=== PATIENT | female | born 1945 | race American Indian/Alaskan Native ===

== ENCOUNTER 2021-05-29 09:25 | Inpatient (IN) | payer SELFPAY ==
[2021-05-29] MEDS ORDERED: SODIUM CHLORIDE 0.9% 1000 ML 1,000 ML IV ONE (09:50)
--- NOTE | 2021-05-29 09:53 | Emergency Department Report ---
- General Chief complaint: Weakness Stated complaint: SOB,WEAK Time Seen by Provider: 05/29/21 09:42 Source: patient Mode of arrival: Wheelchair Limitations: Physical Limitation - History of Present Illness Initial comments: Patient presents with a 3-month history of generalized weakness. She states that she has gotten more and more weak and more more febrile over the last sever al months. She does not want to eat or drink. She has no appetite. She does not have any vomiting. She states that she is also been having trouble breathing. Patient states that she has been hiding this from her family. She lives with her son who is a long-moving van driver. She states that when he is around, she stays in her room and keeps to herself. When he is not there, she has no one to worry about. She decided this morning that she needed help. She had to crawl up the stairs because she was so weak. She told her son to bring her here and he did. Patient has had no vomiting. There is no diarrhea. She denies melena. She has no chest pain. Shortness of breath is constant. It is not positional. It is not associate with any kind of cough or fever. - Related Data Allergies Allergy/AdvReac Type Severity Reaction Status Date / Time No Known Allergies Allergy Unverified 05/29/21 09:29 ED Review of Systems ROS: Stated complaint: SOB,WEAK Other details as noted in HPI Comment: All other systems reviewed and negative Constitutional: denies: fever Eyes: denies: vision change ENT: denies: throat pain Respiratory: denies: cough Cardiovascular: denies: chest pain Endocrine: denies: unexplained weight loss Gastrointestinal: denies: abdominal pain Genitourinary: denies: dysuria Musculoskeletal: denies: back pain Skin: denies: rash Neurological: denies: headache Hematological/Lymphatic: denies: easy bruising ED Past Medical Hx - Past Medical History Previous Medical History?: No - Surgical History Additional Surgical History: Hysterectomy - Family History Family history: no significant ED Physical Exam - General Limitations: Physical Limitation (Frail and debilitated), Other (Pulse ox noted and normal) General appearance: alert, in no apparent distress, cachectic - Head Head exam: Present: atraumatic, normocephalic - Eye Eye exam: Present: normal appearance, EOMI. Absent: scleral icterus - ENT ENT exam: Present: mucous membranes dry, normal external ear exam - Neck Neck exam: Present: normal inspection. Absent: meningismus - Respiratory Respiratory exam: Present: normal lung sounds bilaterally. Absent: respiratory distress - Cardiovascular Cardiovascular Exam: Present: normal rhythm, tachycardia - GI/Abdominal GI/Abdominal exam: Present: soft. Absent: distended, tenderness - Extremities Exam Extremities exam: Present: normal capillary refill - Back Exam Back exam: Absent: CVA tenderness (R), CVA tenderness (L) - Neurological Exam Neurological exam: Present: alert, oriented X3, CN II-XII intact, reflexes no rmal - Psychiatric Psychiatric exam: Present: normal mood, flat affect - Skin Skin exam: Present: warm, dry ED Course Vital Signs 05/29/21 05/29/21 05/29/21 09:33 09:56 10:00 Temperature 98.2 F Pulse Rate 129 H 117 H 115 H Respiratory 20 23 25 H Rate Blood Pressure 149/80 Blood Pressure 143/89 [Right] O2 Sat by Pulse 97 96 95 Oximetry 05/29/21 05/29/21 05/29/21 10:08 10:22 10:31 Temperature Pulse Rate 120 H 114 H Respiratory 26 H 27 H Rate Blood Pressure 156/83 137/81 Blood Pressure [Right] O2 Sat by Pulse 100 94 96 Oximetry 05/29/21 05/29/21 05/29/21 10:45 11:01 11:15 Temperature Pulse Rate 111 H 104 H 101 H Respiratory 23 29 H 16 Rate Blood Pressure 132/90 132/84 152/75 Blood Pressure [Right] O2 Sat by Pulse 96 95 94 Oximetry 05/29/21 05/29/21 05/29/21 11:31 11:45 12:01 Temperature Pulse Rate 97 H 96 H 100 H Respiratory 19 23 21 Rate Blood Pressure 119/98 176/85 182/90 Blood Pressure [Right] O2 Sat by Pulse 98 99 100 Oximetry 05/29/21 05/29/21 05/29/21 12:15 12:31 12:45 Temperature Pulse Rate 100 H 106 H 104 H Respiratory 24 23 28 H Rate Blood Pressure 169/87 178/88 178/79 Blood Pressure [Right] O2 Sat by Pulse 100 100 100 Oximetry 05/29/21 05/29/21 05/29/21 13:01 13:15 13:31 Temperature Pulse Rate 103 H 114 H 114 H Respiratory 18 19 20 Rate Blood Pressure 163/78 160/84 170/79 Blood Pressure [Right] O2 Sat by Pulse 100 100 100 Oximetry 05/29/21 05/29/21 05/29/21 13:49 14:01 14:15 Temperature Pulse Rate 110 H 104 H 106 H Respiratory 26 H 21 22 Rate Blood Pressure 170/79 144/81 163/76 Blood Pressure [Right] O2 Sat by Pulse 99 98 98 Oximetry - Reevaluation(s) Reevaluation #1: 05/29/21 09:52 IV and labs ordered. Old records noted. Reevaluation #2: 05/29/21 14:49 Labs have been noted. Patient will require admission. CT has been added on. ED Medical Decision Making - Lab Data Result diagrams: 05/29/21 09:56 05/29/21 09:56 Rhythm strip: Sinus tachycardia without ectopy. Monitor observe 10 seconds. - EKG Data -: EKG Interpreted by Ar - EKG Data 05/29/21 10:32 1024-EKG shows sinus tachycardia 112. QRS is normal at 93. QT corrected is normal at 125. Patient has no ST elevation to suggest STEMI. There appears to be some ST depression in lead II. There is artifact noted. Patient has no old EKG for comparison. - Medical Decision Making Patient presents secondary to anorexia and generalized malaise and weakness. She was found to be dehydrated with hypernatremia and hypokalemia. She has a pleural effusion. There is evidence of pancreatitis. Etiology for her myriad symptoms could all be related. She does not seem to have any distention or tympany to suggest bowel obstruction. There was no right upper quadrant tenderness suggestive of biliary disease. She does not have a pulsatile mass that would suggest AAA. Patient was admitted to the hospitalist with ongoing management planned. Critical Care Time: No Critical care attestation.: If time is entered above; I have spent that time in minutes in the direct care of this critically ill patient, excluding procedure time. ED Disposition Clinical Impression: Generalized weakness, Anorexia, Hypernatremia, Hypokalemia, Recurrent left pleural effusion Pancreatitis Qualifiers: Chronicity: acute Pancreatitis type: unspecified pancreatitis type Acute pancreatitis complication: unspecified Qualified Code(s): K85.90 - Acute pancreatitis without necrosis or infection, unspecified Disposition: 09 ADMITTED INPATIENT Is pt being admited?: Yes Condition: Stable Referrals: PRIMARY CARE,MD [Primary Care Provider] - 3-5 Days
--- NOTE | 2021-05-29 10:42 | XRay Report ---
CHEST 2 VIEWS INDICATION / CLINICAL INFORMATION: Shortness of breath. COMPARISON: None available. FINDINGS: SUPPORT DEVICES: None. HEART / MEDIASTINUM: No significant abnormality. LUNGS / PLEURA: There is a spiculated left perihilar mass with associated volume loss in the left upp er lung. ADDITIONAL FINDINGS: No significant additional findings. IMPRESSION: 1. Spiculated left perihilar mass and volume loss in left upper lung highly suggestive of bronchogeni c malignancy. Further evaluation with CT of the chest with IV contrast is recommended. Signer Name: Magan Orellana MD Signed: 05/29/2021 10:37 AM Workstation Name: [id number]
[2021-05-29 11:28] LABS: Basophils % (Auto) 0.2 % (0.0-1.8); Eosinophils % (Auto) 0.1 % (0.0-4.3); Hemoglobin 11.5 gm/dl (10.1-14.3); Lymphocytes # (Auto) 0.8 K/mm3 (1.2-5.4); Lymphocytes % (Auto) 7.5 % (13.4-35.0); Mean Corpuscular HGB Conc 31 % (30-34); Mean Corpuscular Volume 93 fl (79-97); Monocytes # (Auto) 0.3 K/mm3 (0.0-0.8); Monocytes % (Auto) 2.9 % (0.0-7.3); Platelet Count 187 K/mm3 (140-440); Red Cell Distribution Width 15.3 % (13.2-15.2)
[2021-05-29 11:46] LABS: BUN/Creatinine Ratio 46; Blood Urea Nitrogen 37 mg/dL (7-17); Calcium 9.4 mg/dL (8.4-10.2); Hemolysis Index 3
[2021-05-29 11:48] LABS: Alanine Aminotransferase 17 units/L (7-56); Albumin 3.3 g/dL (3.9-5)
[2021-05-29 11:52] LABS: Bilirubin,Direct < 0.2 mg/dL (0-0.2)
[2021-05-29] MEDS ORDERED: POTASSIUM CHLORIDE ER 20 MEQ TAB PO ONE (12:12)
[2021-05-29] MEDS ORDERED: LACTATED RINGERS 1,000 ML IV ONE (12:12)
[2021-05-29] MEDS ORDERED: SODIUM CHLORIDE 0.9% 500 ML 500 ML ONE (14:19)
[2021-05-29] MEDS ORDERED: ACETAMINOPHEN 325 MG TAB PO PRN (14:45)
[2021-05-29] MEDS ORDERED: ONDANSETRON 4 MG/2 ML INJ IV PRN (14:45)
--- NOTE | 2021-05-29 14:45 | History and Physical Report ---
History of Present Illness Chief complaint: I feel weak, I cannot keep anything down and I keep losing weight History of present illness: 75 YO Female with No PMH presents to ED for evaluation. Patient states "I feel weak and I cannot keep any down". Patient states that she had experienced increased weakness, nausea, loss of appetite, diminished oral intake over the past 3 months. Patient knowledges 55 pound weight loss over the past 2 months. Patient reports that she is no longer able to ambulate due to progressive weakness. Patient has increased bedbound status. Patient has a palliative performance score 30% and requires 5/6 assistance with activities of daily living. Patient transported to [facility] via private vehicle for further care and evaluation of the aforementioned symptoms. The patient was seen and evaluated in the emergency department. All lab and imaging studies reviewed. Patient found to have pancreatic head mass consistent with pancreatic cancer complicated by acute pancreatitis, and malnutrition, as well as chronic pain. Patient denies fever, chills, chest pain, palpitation, productive cough, skin rash, recent contact, known exposure to COVID-19. No prior admission for review. No medication listed at time of admission for reconciliation. Advanced care planning conducted in ED. [place] Score:1 on admission Past History Past Medical History: No medical history, other (Reviewed) Past Surgical History: No surgical history, Other (Reviewed) Social history: single, lives with family. denies: smoking, alcohol abuse, prescription drug abuse Family history: no significant family history, other (Reviewed) Medications and Allergies Allergies Allergy/AdvReac Type Severity Reaction Status Date / Time No Known Allergies Allergy Unverified 05/29/21 09:29 Active Meds: Active Medications Potassium Chloride (Kcl 10meq/100ml) 10 meq in 100 mls @ 100 mls/hr IV Q1H SEBASTIAN Stop: 05/29/21 15:59 Review of Systems Constitutional: weight loss, weakness, no weight gain, no fever, no chills Ears, nose, mouth and throat: no ear pain, no ear discharge, no decreased hearing, no nose pain, no nasal discharge Breasts: no change in shape, no mass Cardiovascular: no chest pain, no orthopnea, no palpitations, no edema Respiratory: no cough, no cough with sputum, no hemoptysis, no dyspnea on exertion Gastrointestinal: abdominal pain, nausea, no vomiting, no diarrhea, no constipation Genitourinary Female: no pelvic pain, no flank pain, no dysuria, no urinary frequency, no urgency Rectal: no pain, no incontinence, no bleeding Musculoskeletal: no neck stiffness, no shooting arm pain, no low back pain, no shooting leg pain Integumentary: no rash, no redness, no wounds, no boils Neurological: no head injury, no transient paralysis, no weakness, no parathesias, no seizures, no tremors Psychiatric: no anxiety, no memory loss, no sleep disturbances, no change in appetite, no change in libido Endocrine: no cold intolerance, no heat intolerance, no excessive thirst, no polydipsia Hematologic/Lymphatic: no easy bruising, no easy bleeding Allergic/Immunologic: no urticaria, no wheezing Exam - Constitutional Vitals: Temp Pulse Resp BP Pulse Ox 98.2 F 106 H 22 163/76 98 05/29/21 09:33 05/29/21 14:15 05/29/21 14:15 05/29/21 14:15 05/29/21 14:15 General appearance: Present: mild distress, cachectic - EENT Eyes: Present: PERRL ENT: hearing intact, clear oral mucosa - Neck Neck: Present: supple, normal ROM - Respiratory Respiratory effort: normal Respiratory: bilateral: diminished - Cardiovascular Heart Sounds: Present: S1 & S2. Absent: rub, click - Extremities Extremities: pulses symmetrical, No edema Peripheral Pulses: within normal limits - Abdominal General gastrointestinal: Present: soft, tender, non-distended, normal bowel sounds Female genitourinary: Present: normal - Integumentary Integumentary: Present: clear, warm, dry - Musculoskeletal Musculoskeletal: generalized weakness - Psychiatric Psychiatric: appropriate mood/affect, intact judgment & insight - Neurologic Neurologic: CNII-XII intact, moves all extremities HEART Score - HEART Score Troponin: Troponin T < 0.010 ng/mL (0.00-0.029) 05/29/21 09:56 Results - Labs CBC & Chem 7: 05/29/21 09:56 05/29/21 09:56 Labs: Abnormal lab results 05/29/21 05/29/21 05/29/21 Range/Units 09:56 09:56 09:56 RDW 15.3 H (13.2-15.2) % Lymph % (Auto) 7.5 L (13.4-35.0) % Lymph # (Auto) 0.8 L (1.2-5.4) K/mm3 Seg Neutrophils % 89.3 H (40.0-70.0) % Seg Neutrophils # 9.0 H (1.8-7.7) K/mm3 Sodium 151 H (137-145) mmol/L Potassium 2.7 L* (3.6-5.0) mmol/L Chloride 97.5 L (98-107) mmol/L Carbon Dioxide 33 H (22-30) mmol/L BUN 37 H (7-17) mg/dL Magnesium 2.40 H (1.7-2.3) mg/dL AST 41 H (5-40) units/L Total Protein 6.1 L (6.3-8.2) g/dL Albumin 3.3 L (3.9-5) g/dL Lipase 989 H (13-60) units/L Assessment and Plan - Patient Problems (1) Pancreatic cancer Current Visit: Yes Status: Acute Qualifiers: Pancreatic malignancy location: head of pancreas Qualified Code(s): C25.0 - Malignant neoplasm of head of pancreas Plan to address problem: CT scan abdomen pelvis, pain control, supportive care, antiemetic therapy. Patient diagnosis and prognosis discussed. No curative treatment options available. Patient discharged home with home hospice care. Patient elects to have home hospice care. Home hospice care team notified. (2) Malnutrition Current Visit: Yes Status: Acute Qualifiers: Malnutrition type: protein-calorie malnutrition Protein-calorie malnutrition severity: moderate Qualified Code(s): E44.0 - Moderate protein- calorie malnutrition Plan to address problem: Dietary supplementation, increase protein intake. (3) Abdominal pain Current Visit: Yes Status: Acute Qualifiers: Abdominal location: right upper quadrant Qualified Code(s): R10.11 - Right upper quadrant pain Plan to address problem: CT scan abdomen pelvis, pain control, supportive care. (4) Debility Current Visit: Yes Status: Acute Plan to address problem: Supportive care, fall precautions, (5) Vascular dementia Current Visit: Yes Status: Acute Qualifiers: Dementia behavioral disturbance: without behavioral disturbance Qualified Code(s): F01.50 - Vascular dementia without behavioral disturbance Plan to address problem: Verbal prompting, verbal redirection, benzodiazepine therapy as clinically indicated. (6) Cerebral atherosclerosis Current Visit: Yes Status: Acute Plan to address problem: Risk factor reduction therapy, antiplatelet therapy as clinically indicated. (7) Acute pancreatitis Current Visit: Yes Status: Acute Qualifiers: Pancreatitis type: other Plan to address problem: Secondary to pancreatic cancer, supportive care, pain control, oral intake as tolerated. (8) DVT prophylaxis Current Visit: Yes Status: Acute Plan to address problem: SCD to bilateral lower extremities while in bed (9) Advance care planning Current Visit: Yes Status: Acute Plan to address problem: Disease education done, care plan discussed, diagnoses discussed, prognosis di scussed. Patient acknowledges understanding and agreement with care plan. Patient informed of diagnosis of pancreatic cancer and subsequent prognosis. Patient elects to be discharged home with home hospice care. +30 minutes.
--- NOTE | 2021-05-29 14:45 | Electrocardiograph Report ---
[facility] Test Date: 2021-05-29 Test Time: 10:24:01 Pat Name: MADI GOOD Department: Room: Gender: F Document Imaging Specialist: RODERICK : 1945 Requested By: CANDICE MORRISSEY Order Number: [id number] Reading MD: Magdalena Storm Measurements Intervals [place] Rate: 112 P: 74 SC: 127 QRS: 47 QRSD: 93 T: 41 QT: 311 QTc: 425 Interpretive Statements Sinus tachycardia Probable left atrial enlargement Possible anteroseptal infarct, old No previous ECG available for comparison Electronically Signed On 05-29-2021 14:45:12 EST by Magdalena Storm
[2021-05-29] MEDS: POTASSIUM CHLORIDE 10 MEQ 10 MEQ/100 ML BAG IV SCH ×2 (14:46→16:04)
--- NOTE | 2021-05-29 14:47 | Cat Scan Report ---
CT ABDOMEN AND PELVIS WITH CONTRAST HISTORY: pancreatitis. Acute upper abdominal pain COMPARISON: None. TECHNIQUE: CT images of the abdomen and pelvis were obtained following administration of intravenous contrast. All CT scans at this location are performed using CT dose reduction for ALARA by means of automated exposure control. CONTRAST: 100 ml of intravenous contrast administered. FINDINGS: Lungs/bones: Moderate-sized pleural effusion on the left. Mild left basilar compressive atelectasis. Degenerative changes in the spine and the pelvis with no acute osseous abnormality identified. Abdomen/pelvis: There is a pancreatic head mass which is hypoattenuating and measures approximately 2.6 x 2.3 cm on image 56 of series #2. There is upstream pancreatic ductal dilatation and there is al so mild pancreatitis with stranding about the pancreas. A trace amount of ascites is also present as well as several enlarged regional lymph nodes. The celiac axis maintains normal fat plane 365 degrees around the vessel. A simple hepatic cyst is seen in the anterior segment; however, there is an adjac ent more subtle low-attenuation lesion measuring 2 cm on image 18 of series 2 for example. A 5 mm hyp odensity is also seen in the posterior segment on image 39 of the same series. Finally, there is thro mbus in the superior mesenteric vein as seen on image 45 of series 2. There is mild wall thickening involving the duodenal C-loop, likely reactive. The biliary tree is unr emarkable. There are simple bilateral renal cysts, largest arising from the mid to lower pole on the left. Moder ate atherosclerotic disease is present in the abdominal aorta and branch vessels. The gallbladder and spleen appear unremarkable. Urinary bladder is unremarkable. Uterus is surgically absent. There is small volume pelvic free fluid pooling in the pelvis. Moderate colonic diverticulosis is present with no acute inflammatory change identified. There is some abnormal wall thickening involving the splenic flexure of the colon which c ould theoretically be reactive given adjacent pancreatitis. There is also a small loculated fluid col lection measuring 3 cm in the left upper quadrant on image 55 which may reflect early pseudocyst form ation. No bowel obstruction or perforation. IMPRESSION: 1. Pancreatic head mass as outlined above worrisome for adenocarcinoma, with vague hypodensities in t he liver worrisome for metastatic disease. Further, there is regional adenopathy which could be patho logic. Resultant pancreatitis is seen with pancreatic ductal dilatation and inflammatory change about the entire pancreas, as well as small early pseudocyst formation near the splenic flexure of the col on, likely reactive inflammatory change involving the colon itself, and thrombus in the superior mese nteric vein. 2. Moderate-sized left-sided pleural effusion. Signer Name: Heriberto Arceo MD Signed: 05/29/2021 2:42 PM Workstation Name: [id number]
[2021-05-29] MEDS ORDERED: HYDROmorphone 1 MG/1 ML INJ IV PRN (14:50)
[2021-05-29] MEDS ORDERED: ALBUTEROL 2.5 MG/3 ML NEBU IH PRN (14:50)
[2021-05-29] MEDS ORDERED: MORPHINE 2 MG/1 ML INJ IV PRN (14:50)
[2021-05-29] MEDS ORDERED: SODIUM CHLORIDE 0.9% 1000 ML 1,000 ML IV SCH (15:00)
[2021-05-29 15:42] VITALS: BP 165/92
--- NOTE | 2021-05-29 16:56 | Discharge Summary ---
Providers - Providers Date of Admission: 05/29/21 14:45 Attending physician: LOWELL DOBSON 05/29/21 09:50 Consult to Case Management [CONS] Routine Services Needed at Discharge: Other Notified:: placement Primary care physician: [employer] Hospitalization Condition: Poor Pertinent studies: CT scan abdomen pelvis: Pancreatic head mass consistent with pancreatic cancer. Hospital course: 75 YO Female with No PMH presents to ED for evaluation. Patient states "I feel weak and I cannot keep any down". Patient states that she had experienced increased weakness, nausea, loss of appetite, diminished oral intake over the past 3 months. Patient knowledges 55 pound weight loss over the past 2 months. Patient reports that she is no longer able to ambulate due to progressive weakness. Patient has increased bedbound status. Patient has a palliative performance score 30% and requires 5/6 assistance with activities of daily livin g. Patient transported to [facility] via private vehicle for further care and evaluation of the aforementioned symptoms. The patient was seen and evaluated in the emergency department. All lab and imaging studies reviewed. Patient found to have pancreatic head mass consistent with pancreatic cancer complicated by acute pancreatitis, and malnutrition, as well as chronic pain. Patient denies fever, chills, chest pain, palpitation, productive cough, skin rash, recent contact, known exposure to COVID-19. Advanced care planning conducted in ED. patient medically optimized and subsequently discharged home with home hospice care. Disposition: 50 HOSPICE/HOME Final Discharge Diagnosis (Prints w/discharge instructions): Pancreatic cancer Time spent for discharge: 35 minutes - Discharge Diagnoses (1) Pancreatic cancer Status: Acute (2) Acute pancreatitis Status: Acute Qualifiers: Pancreatitis type: other (3) Debility Status: Acute Core Measure Documentation - Palliative Care Palliative Care/ Comfort Measures: Hospice Care Exam - Constitutional Vitals: Temp Pulse Resp BP Pulse Ox 98.2 F 110 H 22 165/92 100 05/29/21 09:33 05/29/21 15:31 05/29/21 15:31 05/29/21 15:31 05/29/21 15:31 General appearance: Present: mild distress, cachectic - EENT Eyes: Present: PERRL ENT: hearing intact, clear oral mucosa - Neck Neck: Present: supple, normal ROM - Respiratory Respiratory effort: normal Respiratory: bilateral: CTA - Cardiovascular Heart Sounds: Present: S1 & S2. Absent: rub, click - Extremities Extremities: pulses symmetrical, No edema Peripheral Pulses: within normal limits - Abdominal General gastrointestinal: Present: soft, non-tender, non-distended, normal bowel sounds Female genitourinary: Present: normal - Integumentary Integumentary: Present: clear, warm, dry - Musculoskeletal Musculoskeletal: gait normal, strength equal bilaterally - Psychiatric Psychiatric: appropriate mood/affect, intact judgment & insight - Neurologic Neurologic: CNII-XII intact, moves all extremities Plan Activity: advance as tolerated Diet: advance as tolerated Special Instructions: home hospice Follow up with: PRIMARY CARE, [Primary Care Provider] - 3-5 Days
[2021-05-29] MEDS ORDERED: POTASSIUM CHLORIDE 10 MEQ 10 MEQ/100 ML BAG IV SCH (17:00)
== END 2021-05-29 18:25 | disposition hospice, home (50) | DRG 439 ==
LOC: ED 09:25 → 3A 14:45
PROVIDERS: ADMIT Internal Medicine; ATTEND Internal Medicine
DX: K85.90 Acute pancreatitis without necrosis or infection, unspecified (principal); E87.0 Hyperosmolality and hypernatremia; E44.0 Moderate protein-calorie malnutrition; C25.0 Malignant neoplasm of head of pancreas; E87.6 Hypokalemia; Z90.710 Acquired absence of both cervix and uterus; F01.50 Vascular dementia, unspecified severity, without behavioral disturbance, psychotic disturbance, mood disturbance, and anxiety; I67.2 Cerebral atherosclerosis
CPT/HCPCS: 36415; 71046; 74177; 80048; 80076; 83690; 83735; 84484; 85025; 93005; 93010; G0378; Q0162; J2270; J3480; J7030; J7040; J7120; Q9967